=== PATIENT | male | born 1990 | race Hispanic/Latino ===

== ENCOUNTER 2024-09-09 14:18 | Emergency (ER) | payer OTHER ==
[~2024-09-09] VITALS: Ht 185.4 cm; Wt 122.5 kg
[2024-09-09 14:45] VITALS: RESP 18; TEMP 97.9
[2024-09-09 15:15] VITALS: PULSE 85; O2SAT 99
[2024-09-09] MEDS ORDERED: AMOX TR-K CLV1 EAC2 PO (15:25)
[2024-09-09] MEDS ORDERED: AMLODIPINE BESY10 MG PO (15:35)
[2024-09-09] MEDS: TRAMADOL HCL 50 MG TAB PO ONE (15:36)
== END 2024-09-09 15:39 | disposition home or self-care (01) ==
LOC: ER 14:38
DX: S60.221A Contusion of right hand, initial encounter (principal); Y04.0XXA Assault by unarmed brawl or fight, initial encounter; Y92.89 Other specified places as the place of occurrence of the external cause
CPT/HCPCS: 99283